=== PATIENT | female | born 1945 ===

== ENCOUNTER 2017-02-19 21:34 | Emergency (ER) | payer SELFPAY ==
[2017-02-19 22:21] VITALS: RESP 16; TEMP 99; BMI 31.8
--- NOTE | 2017-02-19 22:29 | ED PDOC ---
Arrival/HPI - General Time Seen by Provider: 02/19/17 22:07 Historian: Patient, Family - History of Present Illness Narrative History of Present Illness (Text): 02/19/17 22:26 Ivon Knight is a 72 year old female, whose past medical history includes IDDM, who presents to the Emergency department accompanied by family complaining of left lower leg cellulitis. Family report patient developed an area of cellulitis to her left lower leg with associated pain and swelling to the area 1 week ago. Relative states patient had been applying topical ointment to the area with minimal improvement. Patient denies any fever, chills, chest pain, shortness of breath, nausea, vomiting, diarrhea, urinary symptoms, back pain, neck pain, headache, dizziness, or any other complaints. No PMD Time/Duration: 1 week Symptom Onset: Gradual Symptom Course: Unchanged Activities at Onset: Rest, Light Context: Home Past Medical History - Provider Review Nursing Documentation Reviewed: Yes - Cardiac Hx Cardiac Disorders: No - Pulmonary Hx Respiratory Disorders: No - Neurological Hx Neurological Disorder: No - HEENT Hx HEENT Disorder: No - Renal Hx Renal Disorder: No - Endocrine/Metabolic Hx Diabetes Mellitus Type 1: Yes - Hematological/Oncological Hx Blood Disorders: No - Integumentary Hx Dermatological Disorder: No - Musculoskeletal/Rheumatological Hx Musculoskeletal Disorders: No - Gastrointestinal Hx Gastrointestinal Disorders: No - Genitourinary/Gynecological Hx Genitourinary Disorders: No - Psychiatric Hx Psychophysiologic Disorder: No Hx Substance Use: No - Surgical History Hx Tubal Ligation: Yes - Anesthesia Hx Anesthesia: No Family/Social History - Physician Review Nursing Documentation Reviewed: Yes Family/Social History: No Known Family HX Smoking Status: Never Smoked Hx Alcohol Use: No Hx Substance Use: No Allergies/Home Meds Allergies/Adverse Reactions: Allergies No Known Allergies Allergy (Verified 02/19/17 22:22) Home Medications: Home Meds Medication Instructions Recorded Confirmed Insulin Glargine, Recombina 50 units SQ DAILY 02/19/17 02/19/17 [Lantus] Review of Systems - Physician Review All systems were reviewed & negative as marked: Yes - Review of Systems Constitutional: Normal. absent: Fevers Eyes: Normal ENT: Normal Respiratory: Normal. absent: SOB, Cough Cardiovascular: Normal. absent: Chest Pain Gastrointestinal: Normal. absent: Abdominal Pain, Diarrhea, Nausea, Vomiting Genitourinary Female: Normal. absent: Dysuria, Frequency, Hematuria, Urine Output Changes Musculoskeletal: Normal. absent: Back Pain, Neck Pain Skin: Cellulitis (+left lower leg cellulitis) Neurological: Normal. absent: Headache, Dizziness Endocrine: Normal Hemo/Lymphatic: Normal Psychiatric: Normal Physical Exam Vital Signs Reviewed: Yes Vital Signs Temp Pulse Resp BP Pulse Ox 02/20/17 01:01 79 16 127/76 99 02/19/17 22:21 99 F 76 16 166/85 H 97 Temperature: Afebrile Blood Pressure: Normal Pulse: Regular Respiratory Rate: Normal Appearance: Positive for: Well-Appearing, Non-Toxic, Comfortable Pain Distress: None Mental Status: Positive for: Alert and Oriented X 3 - Systems Exam Head: Present: Atraumatic, Normocephalic Pupils: Present: PERRL Extroacular Muscles: Present: EOMI Conjunctiva: Present: Normal Mouth: Present: Moist Mucous Membranes Neck: Present: Normal Range of Motion Respiratory/Chest: Present: Clear to Auscultation, Good Air Exchange. No: Respiratory Distress, Accessory Muscle Use Cardiovascular: Present: Regular Rate and Rhythm, Normal S1, S2. No: Murmurs Abdomen: Present: Normal Bowel Sounds. No: Tenderness, Distention, Peritoneal Signs Back: Present: Normal Inspection Upper Extremity: Present: Normal Inspection. No: Cyanosis, Edema Lower Extremity: Present: NORMAL PULSES, Normal ROM, Tenderness (Tenderness to left calf), Erythema (Area of cellulitis to left leg), Neurovascularly Intact, Capillary Refill < 2 s. No: Edema, Cyanosis, Swelling, Deformity, Temperature Abnormalties Neurological: Present: GCS=15, CN II-XII Intact, Speech Normal Skin: Present: Warm, Dry, Normal Color. No: Rashes Psychiatric: Present: Alert, Oriented x 3, Normal Insight, Normal Concentration Medical Decision Making ED Course and Treatment: 02/19/17 22:26 Impression: 72 year old female complaining of left lower extremity area of cellulitis for 1 week Differential Diagnosis include but are not limited to: cellulitis vs. DVT Plan: -- EKG -- Labs, blood cultures -- US Duplex Lower Extremities -- Reassess and disposition Prior Visits: Notes and results from previous visits were reviewed. Progress Notes: 02/19/17 22:54 Reviewed EKG, NSR at [address]-segment elevations or depressions, no T-wave inversions, normal intervals. 02/19/17 23:39 Reviewed sono, US Duplex Lower Extremities are negative for DVT. 02/20/17 00:25 Reviewed labs, within normal limits. 02/20/17 00:48 On re-evaluation, the patient feels better and is in no acute distress. I have discussed the results and plan with the patient, who expresses understanding. Patient in agreement with plan to discharged home. Patient is stable for discharge. Patient was instructed to follow up with physician/clinic in 1-2 days or return if symptoms worsen or new concerning symptoms arise. Re-evaluation Time: 00:46 Reassessment Condition: Re-examined, Improved - Lab Interpretations Lab Results: 02/19/17 22:50 02/19/17 22:50 Lab Results 02/19/17 22:53: POC Glucose (mg/dL) 283 H 02/19/17 22:50: WBC 7.3, RBC 4.49, Hgb 14.1, Hct 40.6, MCV 90.4, MCH 31.4, MCHC 34.7, RDW 12.8, Plt Count 447, MPV 9.8, Gran % 56.5, Lymph % (Auto) 34.4, Franklin % (Auto) 7.5 H, Eos % (Auto) 1.5, Baso % (Auto) 0.1, Gran # 4.14, Lymph # 2.5, Franklin # 0.6, Eos # 0.1, Baso # 0.01, PT 10.2, INR 0.94, APTT 27.5, Sodium 136, Potassium 4.1, Chloride 97, Carbon Dioxide 32, Anion Gap 11, BUN 13, Creatinine 0.6, Est GFR ( Amer) > 60, Est GFR (Non-Af Amer) > 60, Random Glucose 242 H, Calcium 9.3, Total Bilirubin 0.8, AST 35, ALT 16, Alkaline Phosphatase 110, Total Protein 7.9, Albumin 3.9, Globulin 4.0, Albumin/Globulin Ratio 1.0 L I have reviewed the lab results: Yes - RAD Interpretation Narrative RAD Interpretations (Text): US Duplex Lower Extremities are negative for DVT. Radiology Orders: 02/19/17 22:29 DUPLEX LOWER EXTRM VEIN LEFT [US] Stat - EKG Interpretation Interpreted by ED Physician: Yes Type: 12 lead EKG - Medication Orders Current Medication Orders: Discontinued Medications Clindamycin Phosphate 300 mg/ (Sodium Chloride) 52 mls @ 104 mls/hr IVPB STAT STA PRN Reason: Protocol Stop: 02/20/17 00:07 Last Admin: 02/20/17 00:04 Dose: 104 MLS/HR eMAR Start Stop Document 02/20/17 00:04 EQ (Rec: 02/20/17 00:04 EQ [facility] [id number]) Intravenous Solution Start Date 02/20/17 Start Time 00:04 - Scribe Statement The provider has reviewed the documentation as recorded by the Yessi العلي Provider Attestation: All medical record entries made by the Yessi were at my direction and personally dictated by me. I have reviewed the chart and agree that the record accurately reflects my personal performance of the history, physical exam, medical decision making, and the department course for this patient. I have also personally directed, reviewed, and agree with the discharge instructions and disposition. Disposition/Present on Arrival - Present on Arrival Any Indicators Present on Arrival: No History of DVT/PE: No History of Uncontrolled Diabetes: No Urinary Catheter: No History of Decub. Ulcer: No History Surgical Site Infection Following: None - Disposition Have Diagnosis and Disposition been Completed?: Yes Diagnosis: Cellulitis of leg, left Disposition: HOME/ ROUTINE Disposition Time: 00:48 Condition: GOOD Discharge Instructions (ExitCare): Cellulitis (ED) Print Language: [place] Prescriptions: Clindamycin [Cleocin] 300 mg PO QID #28 cap Referrals: PCP,NO [Primary Care Provider] - Follow up with primary
[2017-02-19 23:12] LABS: ADD MANUAL DIFF? NO
[2017-02-19 23:16] LABS: BASO # 0.01 K/mm3 (0.0-2.0); BASO % 0.1 % (0.0-3.0); EOS # 0.1 (0.0-0.7); EOS % 1.5 % (1.5-5.0); GRAN # 4.14 (1.4-6.5); GRAN % 56.5 % (50.0-68.0); HEMATOCRIT 40.6 % (36.0-48.0); LYMPH # 2.5 (1.2-3.4); LYMPH % 34.4 % (22.0-35.0); MEAN CELL VOLUME 90.4 fL (80.0-105.0); MEAN CORPUSCULAR HEMOGLOBIN 31.4 pg (25.0-35.0); MEAN CORPUSCULAR HGB CONC 34.7 g/dl (31.0-37.0); MEAN PLATELET VOLUME 9.8 fl (7.0-11.0); MONO # 0.6 (0.1-0.6); MONO % 7.5 % (1.0-6.0); PLATELET COUNT 447 10^3/uL (120.0-450.0); RED CELL DISTRIBUTION WIDTH 12.8 % (11.5-14.5); WHITE BLOOD COUNT 7.3 10^3/ul (4.5-11.0)
[2017-02-19 23:26] LABS: INR 0.94 (0.93-1.08); PARTIAL THROMBOPLASTIN TIME 27.5 Seconds (23.7-30.8)
[2017-02-19] MEDS ORDERED: Clindamycin 300 MG in Sodium Chloride 0.9% 50 ML IVPB STA (23:38)
[2017-02-20 00:29] LABS: ALKALINE PHOSPHATASE 110 U/L (38-133); ALT/SGPT 16 U/L (7-56); AST/SGOT 35 U/L (15-39); BILIRUBIN,TOTAL 0.8 mg/dL (0.2-1.3); BLOOD UREA NITROGEN 13 mg/dL (7-21); CALCIUM 9.3 mg/dL (8.4-10.5); CARBON DIOXIDE 32 mmol/L (21-33); CHLORIDE 97 mmol/L (95-110); GFR AFRICAN-AMERICAN > 60; GLUCOSE,RANDOM 242 mg/dL (70-110); POTASSIUM 4.1 mmol/L (3.6-5.0); SODIUM 136 mmol/L (132-148); TOTAL PROTEIN 7.9 g/dL (5.8-8.3)
[2017-02-20 01:04] VITALS: BP 127/76; PULSE 79; O2SAT 99
--- NOTE | 2017-02-20 09:59 | CARD ---
APPROVED REPORT EKG Measurement Heart [id number] <Conclusion> Normal sinus rhythm IMI, age unknown PRWP NSSTW changes
--- NOTE | 2017-02-20 10:12 | US ---
PROCEDURE: Left lower extremity venous US HISTORY: Leg pain and swelling. Evaluate for DVT. PHYSICIAN(S): Seymour Grant MD. TECHNIQUE: Duplex sonography and color-flow Doppler with graded compression were used to evaluate the deep venous system of the left lower extremity. FINDINGS: The visualized deep venous system of the left lower extremity is sonographically normal and compressible. Normal wave forms and augmentation are seen. There is no sonographic evidence for deep venous thrombosis in the visualized segments of the left lower extremity. IMPRESSION: 1. No sonographic evidence for deep venous thrombosis in the visualized segments of the left lower extremity.
== END 2017-02-20 01:05 | disposition home or self-care (01) ==
LOC: ED 21:34
DX: L03.116 Cellulitis of left lower limb (principal)